=== PATIENT | male | born 1955 | race Caucasian/White ===

== ENCOUNTER 2017-09-17 21:07 | Emergency (ER) | payer MEDICAID ==
[~2017-09-17] VITALS: Ht 177.8 cm; Wt 79.4 kg
[2017-09-18 04:29] LABS: Mean Corpuscular Hgb Conc. 33.8 g/dL (32.0-36.0)
[2017-09-18 04:31] LABS: Hemoglobin 15.9 g/dL (13.5-17.5); Mean Corpuscular Hemoglobin 34.2 pg (28.0-32.0); Mean Corpuscular Volume 101.4 fL (80.0-100.0); Mean Platelet Volume 10.2 fL (6.9-10.8); Platelet Count (auto) 179 10^3/uL (140-450); Red Cell Distribution Width 14.3 % (11.8-14.3); White Blood Cell 14.8 10^3/uL (4.4-10.8)
[2017-09-18 04:35] LABS: Metamyelocytes % 0; Myelocytes % 0; Promyelocytes % 0
[2017-09-18] MEDS ORDERED: SODIUM CHLORIDE 0.9% 1,000 ML IV ONE ×2 (04:45→07:22)
[2017-09-18 04:54] LABS: Albumin 3.7 g/dL (3.4-5.0); Alkaline Phosphatase 93 U/L (45-117); Amylase 83 U/L (25-115); Anion Gap 8 (5-15); Aspartate Aminotransferase 124 U/L (15-37); BUN/Creatinine Ratio 18.1; Bilirubin, Total 0.6 mg/dL (0.2-1.0); Blood Urea Nitrogen 19 mg/dL (7-18); Calcium 9.2 mg/dL (8.5-10.1); Carbon Dioxide 26 mmol/L (21-32); Chloride 105 mmol/L (98-107); GFR African American 92 mL/min; GFR Non-African American 76 mL/min; Glucose 95 mg/dL (74-106); Magnesium 1.8 mg/dL (1.6-2.6); Potassium 4.1 mmol/L (3.5-5.1); Sodium 139 mmol/L (136-145); Total Protein 8.4 g/dL (6.4-8.2)
[2017-09-18 04:58] LABS: INR 0.96 (0.9-1.15); Prothrombin Time 10.5 sec (9.37-12.3)
[2017-09-18 05:37] LABS: Macrocytosis Slight; Platelet Estimate Adequate; Reactive Lymphocytes 4
[2017-09-18] MEDS ORDERED: cefTRIAXone 1GM/50ML D5W 50 ML IV ONE (07:30)
[2017-09-18] MEDS ORDERED: DIPHENOXYLATE W/ATROPINE 2.5 MG TAB PO ONE (07:30)
[2017-09-18 08:30] VITALS: BP 109/76
[2017-09-18] MEDS ORDERED: ALBUTEROL SULF 2.5 MG/0.5ML(0.5%) NEB SOLN NEB ONE (09:15)
[2017-09-18] MEDS ORDERED: IPRATROPIUM BROM 0.5 MG/2.5ML INH SOL NEB ONE (09:15)
== END 2017-09-18 09:52 | disposition home or self-care (01) ==
LOC: EDBD 21:07 → ER 21:13
DX: J44.9 Chronic obstructive pulmonary disease, unspecified (principal); R19.7 Diarrhea, unspecified; E86.0 Dehydration; E78.5 Hyperlipidemia, unspecified; F17.210 Nicotine dependence, cigarettes, uncomplicated
CPT/HCPCS: 36415; 80053; 82150; 83690; 83735; 84484; 85007; 85027; 85610; 93005; 94640; 96361; 96365; 99285; J0696; J7030

== ENCOUNTER → 2019-01-24 | Outpatient (CLI) | payer MEDICARE, MEDICAID ==
[~2019-01-24] MED LIST: ALBUTEROL SULF 2.5 MG/0.5ML(0.5%) NEB SOLN ONE; ATOR20TA50 PO; DICL-176 PO; LEVO-28 PO; PANT40TA2 PO; ROPI0.5T PO
== END | disposition home or self-care (01) ==
LOC: RT 08:25
PROVIDERS: ATTEND Internal Medicine Pulmonary Disease
DX: J44.9 Chronic obstructive pulmonary disease, unspecified (principal)
CPT/HCPCS: 94060; J7611

== ENCOUNTER → 2019-04-11 | Outpatient (CLI) | payer MEDICARE, MEDICAID ==
[~2019-04-11] MED LIST changes: -ALBUTEROL SULF 2.5 MG/0.5ML(0.5%) NEB SOLN ONE
== END | disposition home or self-care (01) ==
LOC: RT 09:03
PROVIDERS: ATTEND Internal Medicine Pulmonary Disease
DX: R06.02 Shortness of breath (principal)
CPT/HCPCS: 94618

== ENCOUNTER 2021-11-11 15:11 | Emergency (ER) | payer MEDICARE, MEDICAID ==
[~2021-11-11] VITALS: Ht 170.2 cm; Wt 65.8 kg
[~2021-11-11 15:11] MED LIST changes: -DICL-176 PO; +DICL75TA3 PO; -ROPI0.5T PO; +ROPI0.5T16 PO
[2021-11-11] MEDS ORDERED: SODIUM CHLORIDE 0.9% 1,000 ML IV ONE (16:45)
[2021-11-11 17:42] LABS: Hematocrit 33.6 % (41.0-53.0); Hemoglobin 10.9 g/dL (13.5-17.5); Mean Corpuscular Hemoglobin 29.6 pg (28.0-32.0); Mean Corpuscular Hgb Conc. 32.4 g/dL (32.0-36.0); Mean Corpuscular Volume 91.5 fL (80.0-100.0); Red Blood Cells 3.67 10^6/uL (4.5-5.90); Red Cell Distribution Width 16.2 % (11.8-14.3); White Blood Cell 16.9 10^3/uL (4.4-10.8)
[2021-11-11 18:01] LABS: Basophils % (manual) 0 (0.0-2.0); Blast Cells 0; Metamyelocytes % 0; Myelocytes % 0; Promyelocytes % 0
[2021-11-11 18:03] LABS: Albumin 2.9 g/dL (3.4-5.0); Calcium 8.6 mg/dL (8.5-10.1); Potassium 4.3 mmol/L (3.5-5.1)
[2021-11-11 18:13] LABS: BUN/Creatinine Ratio 15.8; Bilirubin, Total 0.3 mg/dL (0.2-1.0); Total Protein 8.2 g/dL (6.4-8.2)
[2021-11-11] MEDS ORDERED: cefTRIAXone 1GM/50ML D5W 50 ML IV ONE (18:15)
[2021-11-11 18:40] LABS: Band Neutrophils % (manual) 1; Eosinophils % (manual) 2 (0-7); Lymphocytes % (manual) 10 (10.0-50.0); Monocytes % (manual) 8 (0-12); Reactive Lymphocytes 1
[2021-11-11 23:51] LABS: Urine Bacteria FEW /hpf (None Seen); Urine Blood Negative /uL (Negative); Urine Specific Gravity 1.009 (1.001-1.035); Urine WBC 59 /hpf (0 - 3); Urine WBC Clumps PRESENT /hpf (None Seen)
[2021-11-12 02:05] VITALS: BP 122/68
== END 2021-11-12 04:09 | disposition home or self-care (01) ==
LOC: EDBD 15:11 → ER 15:11
DX: S01.81XA Laceration without foreign body of other part of head, initial encounter (principal); K80.20 Calculus of gallbladder without cholecystitis without obstruction; D64.9 Anemia, unspecified; N39.0 Urinary tract infection, site not specified; J44.9 Chronic obstructive pulmonary disease, unspecified; E78.5 Hyperlipidemia, unspecified; F17.210 Nicotine dependence, cigarettes, uncomplicated; F10.20 Alcohol dependence, uncomplicated; Z86.2 Personal history of diseases of the blood and blood-forming organs and certain disorders involving the immune mechanism; Z79.899 Other long term (current) drug therapy; Y90.9 Presence of alcohol in blood, level not specified; X58.XXXA Exposure to other specified factors, initial encounter; Y93.89 Activity, other specified; Y92.89 Other specified places as the place of occurrence of the external cause; Y99.8 Other external cause status
CPT/HCPCS: 12013; 36415; 70450; 71250; 72125; 74176; 80053; 81001; 84484; 85007; 85027; 93005; 96361; 96365; 99285; J0696

== ENCOUNTER 2022-09-25 18:06 | Inpatient (IN) | payer OTHER, MEDICARE, MEDICAID ==
[~2022-09-25] VITALS: Ht 172.7 cm; Wt 68.0 kg
[2022-09-25] MEDS ORDERED: ALBUTEROL SULF 2.5 MG/0.5ML(0.5%) NEB SOLN HHN ONE (19:15)
[2022-09-25] MEDS ORDERED: methylPREDNISolone SOD SUCC 125 MG/2 ML VL IV ONE (19:15)
[2022-09-25] MEDS ORDERED: SODIUM CHLORIDE 0.9% 1,000 ML IV ONE ×2 (19:15→22:00)
[2022-09-25] MEDS ORDERED: IPRATROPIUM BROM 0.5 MG/2.5ML INH SOL HHN ONE (19:15)
[2022-09-25 20:35] LABS: Albumin 3.6 g/dL (3.4-5.0); Calcium 8.7 mg/dL (8.5-10.1)
[2022-09-25 20:39] LABS: Lactic Acid w/Reflex 3.4 mmol/L (0.4-2.0)
[2022-09-25 20:50] LABS: Basophils # (auto) 0.1 10 ^3/uL (0-0.2); Eosinophils % (auto) 14.3 % (0.0-7.0); Neutrophils # (auto) 5.2 10 ^3/uL (1.6-8.6)
[2022-09-25 20:51] LABS: BUN/Creatinine Ratio 12.8; Basophils % (auto) 1.4 % (0.0-2.0); Bilirubin, Total 0.2 mg/dL (0.2-1.0); Eosinophils # (auto) 1.4 10 ^3/uL (0-0.8); Hemoglobin 12.2 g/dL (13.5-17.5); Lymphocytes # (auto) 2.1 10 ^3/uL (0.4-5.4); Lymphocytes % (auto) 21.1 % (10.0-50.0); Magnesium 2.6 mg/dL (1.6-2.6); Mean Corpuscular Hemoglobin 34.6 pg (28.0-32.0); Mean Corpuscular Hgb Conc. 33.8 g/dL (32.0-36.0); Mean Corpuscular Volume 102.3 fL (80.0-100.0); Monocytes # (auto) 1.1 10 ^3/uL (0-1.3); Monocytes % (auto) 10.9 % (0.0-12.0); Neutrophils % (auto) 52.3 % (37.0-80.0); Nucleated Red Blood Cells % 0.2 %; Red Blood Cells 3.52 10^6/uL (4.5-5.90); Red Cell Distribution Width 15.2 % (11.8-14.3); Total Protein 8.2 g/dL (6.4-8.2); White Blood Cell 9.9 10^3/uL (4.4-10.8)
[2022-09-25] MEDS ORDERED: levoFLOXacin 750MG 150 ML IV ONE (21:30)
[2022-09-25] MEDS ORDERED: AZITHROMYCIN 500MG/ 250ML 250 ML IV ONE (22:00)
[2022-09-25] MEDS ORDERED: IPRATROPIUM BROM 0.5 MG/2.5ML INH SOL NEB PRN (22:00)
[2022-09-25] MEDS ORDERED: SODIUM CHLORIDE 0.9% 500 ML IV ONE (22:00)
[2022-09-25] MEDS ORDERED: ALBUTEROL SULF 2.5 MG/0.5ML(0.5%) NEB SOLN NEB PRN (22:00)
[2022-09-25] MEDS ORDERED: MORPHINE SULFATE INJ 2 MG/ml SYRG IV PRN (22:30)
[2022-09-25] MEDS ORDERED: NITROGLYCERIN 0.4 MG SL TAB SL PRN (22:30)
[2022-09-25 23:37] LABS: Lactic Acid w/Reflex 2.9 mmol/L (0.4-2.0)
[2022-09-25 23:41] LABS: Urine Bacteria MANY /hpf (None Seen); Urine Blood Negative /uL (Negative); Urine Mucus FEW (None Seen); Urine Specific Gravity 1.005 (1.001-1.035); Urine Sperm PRESENT /hpf (None Seen); Urine WBC 15 /hpf (0 - 3)
[2022-09-25 23:50] LABS: Amphetamine Screen, Urine POSITIVE (NEGATIVE); Barbiturate Scree,Urine NEGATIVE (NEGATIVE); Benzodiazephine Screen, Urine NEGATIVE (NEGATIVE); Cannabinoid Screen, Urine NEGATIVE (NEGATIVE); Cocaine Screen, Urine NEGATIVE (NEGATIVE); Opiate Scree,Urine NEGATIVE (NEGATIVE); Phencyclidine Screen, Urine NEGATIVE (NEGATIVE)
[2022-09-26 00:10] VITALS: BP 110/68
[2022-09-26 05:15] LABS: Basophils # (auto) 0 10 ^3/uL (0-0.2); Eosinophils # (auto) 0 10 ^3/uL (0-0.8); Eosinophils % (auto) 0.3 % (0.0-7.0); Hemoglobin 11.1 g/dL (13.5-17.5); Lymphocytes # (auto) 0.6 10 ^3/uL (0.4-5.4); Monocytes # (auto) 0 10 ^3/uL (0-1.3); Neutrophils # (auto) 5.2 10 ^3/uL (1.6-8.6)
[2022-09-26 05:17] LABS: Basophils % (auto) 0.3 % (0.0-2.0); Hematocrit 33.3 % (41.0-53.0); Lymphocytes % (auto) 9.6 % (10.0-50.0); Mean Corpuscular Hemoglobin 34.1 pg (28.0-32.0); Mean Corpuscular Hgb Conc. 33.3 g/dL (32.0-36.0); Mean Corpuscular Volume 102.1 fL (80.0-100.0); Monocytes % (auto) 0.8 % (0.0-12.0); Red Blood Cells 3.26 10^6/uL (4.5-5.90); Red Cell Distribution Width 15.3 % (11.8-14.3); White Blood Cell 5.9 10^3/uL (4.4-10.8)
[2022-09-26 05:29] LABS: Calcium 8.1 mg/dL (8.5-10.1); Potassium 4.6 mmol/L (3.5-5.1)
[2022-09-26 05:32] LABS: BUN/Creatinine Ratio 12.7
[2022-09-26] MEDS: ALBUTEROL SULF 2.5 MG/0.5ML(0.5%) NEB SOLN NEB SCH ×3 (06:50→18:23)
[2022-09-26] MEDS: IPRATROPIUM BROM 0.5 MG/2.5ML INH SOL NEB SCH ×3 (06:50→18:23)
[2022-09-26] MEDS ORDERED: methylPREDNISolone SOD SUCC 125 MG/2 ML VL IV SCH (10:00)
[2022-09-26] MEDS ORDERED: DICLOFENAC SODIUM 75 MG PO SCH (10:00)
[2022-09-26] MEDS ORDERED: ENOXAPARIN SOD 40 MG/0.4 ML SYRINGE SC SCH (10:00)
[2022-09-26] MEDS: ROPINIROLE HYDROCHLORIDE 0.25 MG PO SCH (10:00)
[2022-09-26] MEDS: NICOTINE 7MG/24HR TOPICAL PATCH TD SCH (10:21)
[2022-09-26] MEDS: AZITHROMYCIN 500MG/ 250ML 250 ML IV SCH (10:21)
[2022-09-26] MEDS: PANTOPRAZOLE 40 MG TAB PO SCH (10:22)
[2022-09-26] MEDS: ATORVASTATIN 20 MG TAB PO SCH (10:22)
[2022-09-26] MEDS ORDERED: methylPREDNISolone SOD SUCC 125 MG/2 ML VL IV ONE (13:30)
[2022-09-26] MEDS ORDERED: cefTRIAXone 1GM/50ML D5W 50 ML IV ONE (13:45)
[2022-09-26] MEDS: ENOXAPARIN SOD 40 MG/0.4 ML SYRINGE SC SCH (14:02)
[2022-09-26] MEDS: ASPirin 81 mg TAB PO SCH (14:02)
[2022-09-26] MEDS ORDERED: chlordiazePOXIDE HCL 25 MG CAP PO PRN (19:45)
[2022-09-26] MEDS ORDERED: LORazepam 2MG/ML-1ML VIAL IV PRN ×2 (19:45)
[2022-09-26] MEDS ORDERED: TEMAZEPAM 15 MG CAP PO PRN (22:00)
[2022-09-26] MEDS: FOLIC ACID 1 MG, MULTIPLE VITAMIN 10 ML, THIAMINE INJ 100 MG in SODIUM CHLORIDE 0.9% 1,... INJ SCH (22:51)
[2022-09-27] VITALS (7 sets, daily range): BP systolic 116–142; BP diastolic 67–87
[2022-09-27] MEDS: methylPREDNISolone SOD SUCC 40 MG/ML VL IV SCH ×3 (00:18→11:58)
[2022-09-27] MEDS ORDERED: OLAN1TAB7 PO (03:18)
[2022-09-27] MEDS ORDERED: PRED10TA PO (03:18)
[2022-09-27] MEDS: IPRATROPIUM BROM 0.5 MG/2.5ML INH SOL NEB SCH ×3 (06:45→19:30)
[2022-09-27] MEDS: ALBUTEROL SULF 2.5 MG/0.5ML(0.5%) NEB SOLN NEB SCH ×3 (06:45→19:30)
[2022-09-27 07:01] LABS: Calcium 8.7 mg/dL (8.5-10.1); Magnesium 2.3 mg/dL (1.6-2.6); Potassium 4.3 mmol/L (3.5-5.1)
[2022-09-27 07:04] LABS: BUN/Creatinine Ratio 19.3
[2022-09-27] MEDS: cefTRIAXone 1GM/50ML D5W 50 ML IV SCH (10:49)
[2022-09-27] MEDS: ATORVASTATIN 20 MG TAB PO SCH (10:50)
[2022-09-27] MEDS: AZITHROMYCIN 500MG/ 250ML 250 ML IV SCH (10:50)
[2022-09-27] MEDS: ROPINIROLE HYDROCHLORIDE 0.25 MG PO SCH (10:50)
[2022-09-27] MEDS: ASPirin 81 mg TAB PO SCH (10:50)
[2022-09-27] MEDS: PANTOPRAZOLE 40 MG TAB PO SCH (10:50)
[2022-09-27] MEDS: ENOXAPARIN SOD 40 MG/0.4 ML SYRINGE SC SCH (10:51)
[2022-09-27] MEDS: NICOTINE 7MG/24HR TOPICAL PATCH TD SCH (10:52)
[2022-09-27] MEDS: FOLIC ACID 1 MG, MULTIPLE VITAMIN 10 ML, THIAMINE INJ 100 MG in SODIUM CHLORIDE 0.9% 1,... INJ SCH (14:30)
[2022-09-27] MEDS ORDERED: methylPREDNISolone SOD SUCC 125 MG/2 ML VL IV ONE (17:00)
[2022-09-27] MEDS: methylPREDNISolone SOD SUCC 125 MG/2 ML VL IV SCH ×2 (18:16→23:23)
[2022-09-28 05:00] VITALS: BP 148/90
[2022-09-28] MEDS: methylPREDNISolone SOD SUCC 125 MG/2 ML VL IV SCH ×4 (05:03→23:47)
[2022-09-28] MEDS: ALBUTEROL SULF 2.5 MG/0.5ML(0.5%) NEB SOLN NEB SCH ×4 (06:32→22:56)
[2022-09-28] MEDS: IPRATROPIUM BROM 0.5 MG/2.5ML INH SOL NEB SCH ×4 (06:32→22:56)
[2022-09-28 06:42] LABS: Basophils # (auto) 0 10 ^3/uL (0-0.2); Eosinophils # (auto) 0 10 ^3/uL (0-0.8); Mean Corpuscular Hemoglobin 33.6 pg (28.0-32.0); Monocytes # (auto) 0.4 10 ^3/uL (0-1.3)
[2022-09-28 06:45] LABS: Hematocrit 31.9 % (41.0-53.0); Hemoglobin 10.6 g/dL (13.5-17.5); Lymphocytes # (auto) 0.9 10 ^3/uL (0.4-5.4); Lymphocytes % (auto) 6.5 % (10.0-50.0); Mean Corpuscular Hgb Conc. 33.2 g/dL (32.0-36.0); Monocytes % (auto) 3.1 % (0.0-12.0); Neutrophils # (auto) 12.4 10 ^3/uL (1.6-8.6); Neutrophils % (auto) 90.4 % (37.0-80.0); Nucleated Red Blood Cells % 0.1 %; Red Blood Cells 3.16 10^6/uL (4.5-5.90); Red Cell Distribution Width 14.9 % (11.8-14.3); White Blood Cell 13.7 10^3/uL (4.4-10.8)
[2022-09-28 06:56] LABS: Calcium 8.4 mg/dL (8.5-10.1); Potassium 3.7 mmol/L (3.5-5.1)
[2022-09-28 07:02] LABS: Albumin 3.1 g/dL (3.4-5.0); BUN/Creatinine Ratio 25.5; Bilirubin, Total 0.5 mg/dL (0.2-1.0)
[2022-09-28 09:00] VITALS: BP 128/85
[2022-09-28] MEDS: cefTRIAXone 1GM/50ML D5W 50 ML IV SCH (09:05)
[2022-09-28] MEDS: ENOXAPARIN SOD 40 MG/0.4 ML SYRINGE SC SCH (09:05)
[2022-09-28] MEDS: ASPirin 81 mg TAB PO SCH (09:06)
[2022-09-28] MEDS: PANTOPRAZOLE 40 MG TAB PO SCH (09:06)
[2022-09-28] MEDS: ATORVASTATIN 20 MG TAB PO SCH (09:06)
[2022-09-28] MEDS: AZITHROMYCIN 500MG/ 250ML 250 ML IV SCH (09:06)
[2022-09-28] MEDS: NICOTINE 7MG/24HR TOPICAL PATCH TD SCH (09:15)
[2022-09-28] MEDS: ROPINIROLE HYDROCHLORIDE 0.25 MG PO SCH (09:16)
[2022-09-28] MEDS ORDERED: FOLIC ACID 1 MG, MULTIPLE VITAMIN 10 ML, THIAMINE INJ 100 MG, MAGNESIUM SULF SDV 50% 8 ... INJ SCH ×5 (12:00)
[2022-09-28 13:00] VITALS: BP 118/77
[2022-09-28 16:43] VITALS: BP 116/78
[2022-09-28 22:00] VITALS: BP 131/70
[2022-09-29] MEDS: IPRATROPIUM BROM 0.5 MG/2.5ML INH SOL NEB SCH ×6 (03:13→22:00)
[2022-09-29] MEDS: ALBUTEROL SULF 2.5 MG/0.5ML(0.5%) NEB SOLN NEB SCH ×6 (03:13→22:00)
[2022-09-29 05:00] VITALS: BP 129/85
[2022-09-29] MEDS: methylPREDNISolone SOD SUCC 125 MG/2 ML VL IV SCH (05:53)
[2022-09-29 08:47] VITALS: BP 143/85
[2022-09-29] MEDS: cefTRIAXone 1GM/50ML D5W 50 ML IV SCH (09:31)
[2022-09-29] MEDS: ATORVASTATIN 20 MG TAB PO SCH (09:36)
[2022-09-29] MEDS: ASPirin 81 mg TAB PO SCH (09:36)
[2022-09-29] MEDS: PANTOPRAZOLE 40 MG TAB PO SCH (09:36)
[2022-09-29] MEDS: ENOXAPARIN SOD 40 MG/0.4 ML SYRINGE SC SCH (09:36)
[2022-09-29] MEDS: ROPINIROLE HYDROCHLORIDE 0.25 MG PO SCH (10:00)
[2022-09-29] MEDS: AZITHROMYCIN 500MG/ 250ML 250 ML IV SCH (11:05)
[2022-09-29 13:23] VITALS: BP 108/62
[2022-09-29 17:00] VITALS: BP 118/70
[2022-09-29] MEDS: NICOTINE 7MG/24HR TOPICAL PATCH TD SCH (17:21)
[2022-09-29 22:00] VITALS: BP 120/70
[2022-09-30] MEDS: IPRATROPIUM BROM 0.5 MG/2.5ML INH SOL NEB SCH ×4 (02:03→14:12)
[2022-09-30] MEDS: ALBUTEROL SULF 2.5 MG/0.5ML(0.5%) NEB SOLN NEB SCH ×4 (02:03→14:12)
[2022-09-30 05:00] VITALS: BP 104/67
[2022-09-30 08:00] VITALS: BP 111/69
[2022-09-30] MEDS: cefTRIAXone 1GM/50ML D5W 50 ML IV SCH (09:09)
[2022-09-30] MEDS: PANTOPRAZOLE 40 MG TAB PO SCH (09:13)
[2022-09-30] MEDS: ASPirin 81 mg TAB PO SCH (09:14)
[2022-09-30] MEDS: ATORVASTATIN 20 MG TAB PO SCH (09:14)
[2022-09-30] MEDS: NICOTINE 7MG/24HR TOPICAL PATCH TD SCH (09:15)
[2022-09-30] MEDS: ENOXAPARIN SOD 40 MG/0.4 ML SYRINGE SC SCH (09:18)
[2022-09-30] MEDS: ROPINIROLE HYDROCHLORIDE 0.25 MG PO SCH (09:23)
[2022-09-30] MEDS ORDERED: AZITHROMYCIN 250 MG TAB PO SCH (10:00)
[2022-09-30] MEDS ORDERED: FOLIC ACID 1 MG TAB PO SCH (10:00)
[2022-09-30] MEDS ORDERED: predniSONE 20 MG TAB PO SCH (10:00)
[2022-09-30 12:00] VITALS: BP 114/73
[2022-09-30] MEDS ORDERED: AZITTAB2 PO (12:05)
[2022-09-30] MEDS ORDERED: METH4PAK PO (12:05)
== END 2022-09-30 16:31 | disposition hospice, home (50) | DRG 193 ==
LOC: EDBD 18:06 → ER 18:06 → TELE 22:28 → TELE-WESTW 09-26 23:18 → WEST WING 09-30 10:31
PROVIDERS: ADMIT Registered Nurse; ATTEND Internal Medicine
DX: J18.9 Pneumonia, unspecified organism (principal); G93.41 Metabolic encephalopathy; J96.20 Acute and chronic respiratory failure, unspecified whether with hypoxia or hypercapnia; N17.0 Acute kidney failure with tubular necrosis; J44.1 Chronic obstructive pulmonary disease with (acute) exacerbation; N39.0 Urinary tract infection, site not specified; J44.0 Chronic obstructive pulmonary disease with (acute) lower respiratory infection; R55 Syncope and collapse; D63.8 Anemia in other chronic diseases classified elsewhere; D69.6 Thrombocytopenia, unspecified; F10.10 Alcohol abuse, uncomplicated; F17.210 Nicotine dependence, cigarettes, uncomplicated; N18.30 Chronic kidney disease, stage 3 unspecified; Z20.822 Contact with and (suspected) exposure to COVID-19; F15.10 Other stimulant abuse, uncomplicated; Z71.6 Tobacco abuse counseling; Z85.118 Personal history of other malignant neoplasm of bronchus and lung; Z86.73 Personal history of transient ischemic attack (TIA), and cerebral infarction without residual deficits
CPT/HCPCS: 36415; 36600; 70450; 70551; 71045; 80048; 80053; 80061; 80307; 80320; 81001; 82805; 83036; 83605; 83735; 83880; 84443; 84484; 85025; 85379; 85610; 87040; 87086; 87426; 87804; 93005; 93306; 93886; 94640; 95819; 96365; 96367; 96375; 97110; 97116; 97163; 97530; G0378; J0696; J1956

== ENCOUNTER 2023-06-27 19:20 | Inpatient (IN) | payer OTHER, MEDICARE, MEDICAID ==
[~2023-06-27] VITALS: Ht 177.8 cm; Wt 56.8 kg
[~2023-06-27 19:20] MED LIST changes: +ASCO500T11 PO; +AZITTAB2 PO; +FERR325T20 PO; -LEVO-28 PO; +LEVO500T91 PO; +LORA-1121 PO; +METH4PAK PO; +OLAN1TAB7 PO; +OLAN20TA PO; +PRED10TA PO; +PRED20TA2 PO; +QUET100T47 PO; +ROPI0.5T4 PO
[2023-06-27] MEDS ORDERED: ALBUTEROL SULF 2.5 MG/0.5ML(0.5%) NEB SOLN NEB ONE (20:30)
[2023-06-27] MEDS ORDERED: IPRATROPIUM BROM 0.5 MG/2.5ML INH SOL NEB ONE (20:30)
[2023-06-27] MEDS ORDERED: SODIUM CHLORIDE 0.9% 2,400 ML IV ONE (20:30)
[2023-06-27] MEDS ORDERED: ACETAMINOPHEN 650 MG RECT SUPP PR ONE (20:30)
[2023-06-27] MEDS ORDERED: VANCOMYCIN PER PHARMACY 1,000 MG IV SCH (20:30)
[2023-06-27] MEDS ORDERED: PANTOPRAZOLE 40 MG/10 ML VIAL INJ IV ONE (20:30)
[2023-06-27 20:52] LABS: Base Excess 1.2 mmol/L (-2.0-2.0)
[2023-06-27] MEDS ORDERED: VANCOMYCIN 1GM/250ML 250 ML IV ONE (21:00)
[2023-06-27 21:04] LABS: Basophils # (auto) 0.1 10 ^3/uL (0-0.2); Basophils % (auto) 0.7 % (0.0-2.0); Eosinophils # (auto) 0.1 10 ^3/uL (0-0.8); Eosinophils % (auto) 0.4 % (0.0-7.0); Hematocrit 32.4 % (41.0-53.0); Hemoglobin 9.3 g/dL (13.5-17.5); Lymphocytes # (auto) 1.3 10 ^3/uL (0.4-5.4); Lymphocytes % (auto) 9.8 % (10.0-50.0); Mean Corpuscular Hemoglobin 24.2 pg (28.0-32.0); Mean Corpuscular Hgb Conc. 28.8 g/dL (32.0-36.0); Monocytes # (auto) 1.8 10 ^3/uL (0-1.3); Monocytes % (auto) 13.6 % (0.0-12.0); Neutrophils # (auto) 10.2 10 ^3/uL (1.6-8.6); Neutrophils % (auto) 75.5 % (37.0-80.0); Red Blood Cells 3.86 10^6/uL (4.5-5.90); White Blood Cell 13.5 10^3/uL (4.4-10.8)
[2023-06-27 21:05] LABS: Red Cell Distribution Width 27.3 % (11.8-14.3)
[2023-06-27 21:50] LABS: Partial Thromboplastin Time 26.2 SEC (24.5-34.5); Prothrombin Time 10.5 sec (9.3-11.8)
[2023-06-27 22:09] LABS: Alanine Aminotransferase 36 U/L (16-61); Albumin 3.2 g/dL (3.4-5.0); Anion Gap 3 (5-15); Aspartate Aminotransferase 26 U/L (15-37); BUN/Creatinine Ratio 16.6 (10.0-20.0); Blood Urea Nitrogen 29 mg/dL (7-18); Calcium 8.6 mg/dL (8.5-10.1); Carbon Dioxide 31 mmol/L (21-32); Chloride 105 mmol/L (98-107); GFR African American 50 mL/min; GFR Non-African American 41 mL/min; Glucose 120 mg/dL (74-106); Magnesium 2.1 mg/dL (1.6-2.6); Potassium 5.4 mmol/L (3.5-5.1); Sodium 139 mmol/L (136-145)
[2023-06-27 22:12] LABS: Alkaline Phosphatase 54 U/L (45-117); Bilirubin, Total 0.3 mg/dL (0.2-1.0)
[2023-06-27 22:28] LABS: Blood Alcohol < 3.0 mg/dL (<10)
[2023-06-27 22:34] VITALS: BP 132/80; PULSE 120; RESP 26; TEMP 100.4; O2SAT 88
[2023-06-27 22:46] VITALS: PULSE 107; O2SAT 92
[2023-06-27 22:46] LABS: Anisocytosis Moderate; Platelet Estimate Decreased
[2023-06-27 22:47] LABS: Hypochromia Slight; Large Platelets FEW; Stomatocytes Few
[2023-06-27 23:10] VITALS: PULSE 108; O2SAT 90
[2023-06-27 23:41] VITALS: BP 101/57; PULSE 103; O2SAT 97
[2023-06-28] VITALS (11 sets, daily range): BP systolic 98–130; BP diastolic 54–80; PULSE 72–107; RESP 20–26; O2SAT 94–99
[2023-06-28] MEDS: PIPERACILLIN-TAZOB 3.375GM 100 ML IV SCH ×4 (00:09→18:13)
[2023-06-28 00:46] LABS: Urine Bacteria MANY /hpf (None Seen); Urine Blood Negative /uL (Negative); Urine Clarity HAZY (Clear); Urine Color Colorless (Yellow); Urine Mucus FEW (None Seen); Urine Protein, UAD TRACE (Negative); Urine Specific Gravity 1.011 (1.001-1.035); Urine Urobilinogen Normal (Negative); Urine WBC 164 /hpf (0 - 3); Urine WBC Clumps PRESENT /hpf (None Seen); Urine pH 5.5 (5.0-8.0)
[2023-06-28 00:57] LABS: Alcohol, Urine < 3.0 mg/dL (0-10); Amphetamine Screen, Urine NEGATIVE (NEGATIVE); Barbiturate Scree,Urine NEGATIVE (NEGATIVE); Benzodiazephine Screen, Urine POSITIVE (NEGATIVE); Cannabinoid Screen, Urine NEGATIVE (NEGATIVE); Cocaine Screen, Urine NEGATIVE (NEGATIVE)
[2023-06-28 01:05] LABS: Opiate Scree,Urine POSITIVE (NEGATIVE); Phencyclidine Screen, Urine NEGATIVE (NEGATIVE)
[2023-06-28 01:19] LABS: Base Excess -4.9 mmol/L (-2.0-2.0)
[2023-06-28] MEDS ORDERED: FUROSEMIDE 20 MG/2 ML VIAL IV ONE (04:45)
[2023-06-28] MEDS ORDERED: NITROGLYCERIN 0.4 MG SL TAB SL PRN (06:00)
[2023-06-28] MEDS ORDERED: methylPREDNISolone SOD SUCC 40 MG/ML VL IV SCH (06:00)
[2023-06-28] MEDS ORDERED: DOCUSATE SOD 100 MG CAP PO PRN (06:00)
[2023-06-28] MEDS ORDERED: MORPHINE SULFATE INJ 2 MG/ml SYRG IV PRN (06:00)
[2023-06-28] MEDS ORDERED: ONDANSETRON HCL 4 MG/2 ML VIAL IV PRN (06:00)
[2023-06-28] MEDS ORDERED: SODIUM ZIRCONIUM CYCL 10 GM PAK PO ONE (06:00)
[2023-06-28] MEDS ORDERED: ACETAMINOPHEN 650 MG RECT SUPP PR PRN (06:00)
[2023-06-28] MEDS: SODIUM CHLOR 0.9% PF (SALINE LOCK) 10ML VIAL/SYR IV SCH ×3 (06:54→22:42)
[2023-06-28 07:17] LABS: Eosinophils # (auto) 0 10 ^3/uL (0-0.8); Neutrophils # (auto) 9.1 10 ^3/uL (1.6-8.6); Red Blood Cells 3.25 10^6/uL (4.5-5.90)
[2023-06-28 07:20] LABS: Basophils # (auto) 0.1 10 ^3/uL (0-0.2); Basophils % (auto) 0.9 % (0.0-2.0); Eosinophils % (auto) 0.4 % (0.0-7.0); Hematocrit 26.6 % (41.0-53.0); Hemoglobin 7.9 g/dL (13.5-17.5); Lymphocytes # (auto) 1.7 10 ^3/uL (0.4-5.4); Lymphocytes % (auto) 13.4 % (10.0-50.0); Mean Corpuscular Hemoglobin 24.3 pg (28.0-32.0); Mean Corpuscular Hgb Conc. 29.6 g/dL (32.0-36.0); Monocytes # (auto) 1.6 10 ^3/uL (0-1.3); Monocytes % (auto) 12.6 % (0.0-12.0); Neutrophils % (auto) 72.7 % (37.0-80.0); White Blood Cell 12.5 10^3/uL (4.4-10.8)
[2023-06-28 07:52] LABS: Red Cell Distribution Width 27.3 % (11.8-14.3)
[2023-06-28 07:54] LABS: Potassium 4.3 mmol/L (3.5-5.1)
[2023-06-28 08:03] LABS: Albumin 2.9 g/dL (3.4-5.0); BUN/Creatinine Ratio 17.1 (10.0-20.0); Bilirubin, Total 0.4 mg/dL (0.2-1.0); Calcium 8.5 mg/dL (8.5-10.1); Total Protein 7.3 g/dL (6.4-8.2)
[2023-06-28 09:27] LABS: Hypochromia Moderate; Platelet Estimate Decreased
[2023-06-28 09:28] LABS: Anisocytosis Moderate
[2023-06-28] MEDS ORDERED: DexAMETHasone SOD PHOS 10MG/1ML VIAL INJ ONE (10:43)
[2023-06-28 10:46] LABS: Base Excess 1.5 mmol/L (-2.0-2.0)
[2023-06-28] MEDS: FUROSEMIDE 20 MG/2 ML VIAL IV SCH (10:53)
[2023-06-28] MEDS: DexAMETHasone SOD PHOS 10MG/1ML VIAL INJ IV SCH (10:54)
[2023-06-28] MEDS: FAMOTIDINE (10MG/ML) 2ML VL IV SCH ×2 (10:54→22:42)
[2023-06-28 12:16] LABS: Base Excess 3.6 mmol/L (-2.0-2.0)
[2023-06-28 15:35] LABS: Base Excess 4.2 mmol/L (-2.0-2.0)
[2023-06-28] MEDS: VANCOMYCIN 1GM/250ML 250 ML IV SCH (20:24)
[2023-06-28] MEDS: IPRATROPIUM BROM 0.5 MG/2.5ML INH SOL NEB PRN (23:53)
[2023-06-28] MEDS: ALBUTEROL SULF 2.5 MG/0.5ML(0.5%) NEB SOLN NEB PRN (23:53)
[2023-06-29] VITALS (11 sets, daily range): BP systolic 109–133; BP diastolic 62–88; PULSE 69–106; RESP 23–35; O2SAT 93–100
[2023-06-29] MEDS: PIPERACILLIN-TAZOB 3.375GM 100 ML IV SCH ×4 (02:00→19:53)
[2023-06-29 06:43] LABS: Basophils # (auto) 0.1 10 ^3/uL (0-0.2); Basophils % (auto) 0.6 % (0.0-2.0); Eosinophils # (auto) 0 10 ^3/uL (0-0.8); Hematocrit 28.7 % (41.0-53.0); Hemoglobin 8.8 g/dL (13.5-17.5); Lymphocytes # (auto) 1.6 10 ^3/uL (0.4-5.4); Mean Corpuscular Hemoglobin 24.5 pg (28.0-32.0); Monocytes # (auto) 1.2 10 ^3/uL (0-1.3); Neutrophils # (auto) 8.6 10 ^3/uL (1.6-8.6); White Blood Cell 11.5 10^3/uL (4.4-10.8)
[2023-06-29 06:45] LABS: Eosinophils % (auto) 0.3 % (0.0-7.0); Lymphocytes % (auto) 13.8 % (10.0-50.0); Mean Corpuscular Hgb Conc. 30.7 g/dL (32.0-36.0); Mean Corpuscular Volume 79.8 fL (80.0-100.0); Monocytes % (auto) 10.5 % (0.0-12.0); Neutrophils % (auto) 74.8 % (37.0-80.0); Red Cell Distribution Width 29.4 % (11.8-14.3)
[2023-06-29 06:56] LABS: Albumin 3.3 g/dL (3.4-5.0); Calcium 9.7 mg/dL (8.5-10.1); Potassium 3.3 mmol/L (3.5-5.1)
[2023-06-29 06:59] LABS: BUN/Creatinine Ratio 18.8 (10.0-20.0); Bilirubin, Total 0.4 mg/dL (0.2-1.0); Total Protein 8.4 g/dL (6.4-8.2)
[2023-06-29] MEDS: SODIUM CHLOR 0.9% PF (SALINE LOCK) 10ML VIAL/SYR IV SCH ×3 (07:49→22:10)
[2023-06-29] MEDS: ALBUTEROL SULF 2.5 MG/0.5ML(0.5%) NEB SOLN NEB PRN ×3 (09:58→22:24)
[2023-06-29] MEDS: IPRATROPIUM BROM 0.5 MG/2.5ML INH SOL NEB PRN ×3 (09:58→22:24)
[2023-06-29] MEDS ORDERED: DexAMETHasone SOD PHOS 10MG/1ML VIAL INJ IV SCH (10:00)
[2023-06-29] MEDS: DexAMETHasone SOD PHOS 10MG/1ML VIAL INJ IV SCH (10:00)
[2023-06-29] MEDS: FAMOTIDINE (10MG/ML) 2ML VL IV SCH ×2 (11:04→22:10)
[2023-06-29] MEDS: FUROSEMIDE 20 MG/2 ML VIAL IV SCH (11:05)
[2023-06-29] MEDS ORDERED: LORazepam 2MG/ML-1ML VIAL ONE (11:16)
[2023-06-29] MEDS: LORazepam 2MG/ML-1ML VIAL IV PRN ×2 (11:31→21:23)
[2023-06-29] MEDS ORDERED: HALOPERIDOL LACTATE 5 MG/ML INJ VIAL IM ONE (13:15)
[2023-06-29 17:06] LABS: Base Excess 8.8 mmol/L (-2.0-2.0)
[2023-06-29] MEDS: VANCOMYCIN 1GM/250ML 250 ML IV SCH (18:51)
[2023-06-30] VITALS (11 sets, daily range): BP systolic 105–142; BP diastolic 58–84; PULSE 62–94; RESP 18–25; TEMP 98.1–98.6; O2SAT 98–100
[2023-06-30] MEDS: PIPERACILLIN-TAZOB 3.375GM 100 ML IV SCH ×3 (00:03→17:34)
[2023-06-30] MEDS: SODIUM CHLOR 0.9% PF (SALINE LOCK) 10ML VIAL/SYR IV SCH ×3 (06:11→21:42)
[2023-06-30] MEDS: DexAMETHasone SOD PHOS 10MG/1ML VIAL INJ IV SCH (10:00)
[2023-06-30] MEDS: FAMOTIDINE (10MG/ML) 2ML VL IV SCH ×2 (10:00→21:39)
[2023-06-30] MEDS: FUROSEMIDE 20 MG/2 ML VIAL IV SCH (10:00)
[2023-06-30 11:40] LABS: Calcium 9.8 mg/dL (8.5-10.1)
[2023-06-30 11:43] LABS: Potassium 2.9 mmol/L (3.5-5.1)
[2023-06-30] MEDS ORDERED: POTASSIUM CHL 20 Meq TABLET PO ONE (12:45)
[2023-06-30] MEDS: BUDESONIDE (INHALATION) 0.5 MG/2 ML NEB NEB SCH (19:12)
[2023-06-30] MEDS: IPRATROPIUM BROM 0.5 MG/2.5ML INH SOL NEB PRN (19:12)
[2023-06-30] MEDS: ALBUTEROL SULF 2.5 MG/0.5ML(0.5%) NEB SOLN NEB PRN (19:12)
[2023-07-01] VITALS (9 sets, daily range): BP systolic 114–141; BP diastolic 64–71; PULSE 63–76; RESP 16–20; TEMP 98.1–98.3; O2SAT 98–100
[2023-07-01] MEDS: PIPERACILLIN-TAZOB 3.375GM 100 ML IV SCH (06:09)
[2023-07-01] MEDS: SODIUM CHLOR 0.9% PF (SALINE LOCK) 10ML VIAL/SYR IV SCH (06:11)
[2023-07-01] MEDS: BUDESONIDE (INHALATION) 0.5 MG/2 ML NEB NEB SCH (06:54)
[2023-07-01] MEDS ORDERED: LEVO750T8 PO (08:24)
[2023-07-01] MEDS: FAMOTIDINE (10MG/ML) 2ML VL IV SCH (08:45)
[2023-07-01] MEDS: DexAMETHasone SOD PHOS 10MG/1ML VIAL INJ IV SCH (08:45)
[2023-07-01] MEDS: FUROSEMIDE 20 MG/2 ML VIAL IV SCH (08:46)
== END 2023-07-01 11:45 | disposition hospice, home (50) | DRG 871 ==
LOC: EDBD 19:20 → ER 19:20 → TELE 06-28 06:09 → TELE-CENTR 06-30 06:17
PROVIDERS: ADMIT Family Medicine; ATTEND Family Medicine
PROC: 5A09357 Assistance with Respiratory Ventilation, Less than 24 Consecutive Hours, Continuous Positive Airway Pressure (ICD-10-PCS; principal; 2023-06-27)
PROC: 5A09357 Assistance with Respiratory Ventilation, Less than 24 Consecutive Hours, Continuous Positive Airway Pressure (ICD-10-PCS; 2023-06-28)
PROC: 5A09357 Assistance with Respiratory Ventilation, Less than 24 Consecutive Hours, Continuous Positive Airway Pressure (ICD-10-PCS; 2023-06-29)
DX: A41.81 Sepsis due to Enterococcus (principal); I50.33 Acute on chronic diastolic (congestive) heart failure; J69.0 Pneumonitis due to inhalation of food and vomit; J96.21 Acute and chronic respiratory failure with hypoxia; J96.22 Acute and chronic respiratory failure with hypercapnia; E87.29 Other acidosis; G93.49 Other encephalopathy; I13.0 Hypertensive heart and chronic kidney disease with heart failure and stage 1 through stage 4 chronic kidney disease, or unspecified chronic kidney disease; J44.1 Chronic obstructive pulmonary disease with (acute) exacerbation; N17.9 Acute kidney failure, unspecified; N39.0 Urinary tract infection, site not specified; J44.0 Chronic obstructive pulmonary disease with (acute) lower respiratory infection; D64.9 Anemia, unspecified; D69.59 Other secondary thrombocytopenia; E78.5 Hyperlipidemia, unspecified; E87.5 Hyperkalemia; F10.10 Alcohol abuse, uncomplicated; F32.A Depression, unspecified; Y90.9 Presence of alcohol in blood, level not specified; N18.32 Chronic kidney disease, stage 3b; F15.10 Other stimulant abuse, uncomplicated; Z51.5 Encounter for palliative care; Z87.19 Personal history of other diseases of the digestive system; Z86.73 Personal history of transient ischemic attack (TIA), and cerebral infarction without residual deficits
CPT/HCPCS: 36415; 36600; 70450; 71045; 80048; 80053; 80202; 80307; 80320; 81001; 82140; 82805; 83605; 83735; 83880; 84484; 85025; 85610; 85730; 86850; 86900; 86901; 87040; 87081; 87086; 87088; 87186; 94640; 94660; 96365; 96375; 99291; C9113; G0378; J1100; J2543; J3490

== ENCOUNTER 2023-08-31 03:43 | Inpatient (IN) | payer OTHER, MEDICARE, MEDICAID ==
[~2023-08-31] VITALS: Ht 170.2 cm; Wt 62.0 kg
[2023-08-31] VITALS (9 sets, daily range): BP systolic 101–133; BP diastolic 54–76; PULSE 76–111; RESP 18–38; TEMP 97.1–98.1; O2SAT 94–100
[~2023-08-31 03:43] MED LIST changes: +LEVO750T8 PO
[2023-08-31] MEDS ORDERED: FUROSEMIDE 40 MG/4 ML VIAL IV ONE ×2 (04:30→18:45)
[2023-08-31] MEDS ORDERED: ALBUTEROL SULF 2.5 MG/0.5ML(0.5%) NEB SOLN HHN ONE ×2 (04:30)
[2023-08-31] MEDS ORDERED: ONDANSETRON HCL 4 MG/2 ML VIAL IV ONE (04:30)
[2023-08-31] MEDS ORDERED: cefTRIAXone 1GM/50ML D5W 50 ML IV ONE (04:30)
[2023-08-31] MEDS ORDERED: methylPREDNISolone SOD SUCC 40 MG/ML VL IV ONE (04:30)
[2023-08-31] MEDS ORDERED: ACETAMINOPHEN 325 MG TAB PO ONE (04:30)
[2023-08-31] MEDS ORDERED: AZITHROMYCIN 500MG/ 250ML 250 ML IV ONE (04:30)
[2023-08-31] MEDS ORDERED: IPRATROPIUM BROM 0.5 MG/2.5ML INH SOL HHN ONE ×2 (04:30)
[2023-08-31 04:47] LABS: Base Excess -2.3 mmol/L (-2.0-2.0)
[2023-08-31 04:48] LABS: INR 1.04 (0.9-1.15); Partial Thromboplastin Time 24.5 SEC (24.5-34.5); Prothrombin Time 10.9 sec (9.3-11.8)
[2023-08-31 04:52] LABS: Alanine Aminotransferase 39 U/L (7-40); Albumin 3.7 g/dL (3.2-4.8); Alkaline Phosphatase 78 U/L (46-116); Anion Gap 13 (5-15); Aspartate Aminotransferase 51 U/L (13-40); Bilirubin, Total 0.2 mg/dL (0.2-1.0); Blood Urea Nitrogen 12 mg/dL (9-23); Calcium 8.7 mg/dL (8.5-10.1); Carbon Dioxide 22 mmol/L (20-30); Chloride 102 mmol/L (98-107); Glucose 216 mg/dL (74-106); Potassium 3.5 mmol/L (3.5-5.1); Sodium 137 mmol/L (136-145); Total Protein 7.2 g/dL (5.7-8.2)
[2023-08-31 04:53] LABS: Nucleated Red Blood Cells % 0.2 %
[2023-08-31 04:54] LABS: Basophils # (auto) 0 10 ^3/uL (0-0.2); Basophils % (auto) 0.2 % (0.0-2.0); Eosinophils # (auto) 0 10 ^3/uL (0-0.8); Hematocrit 23.7 % (41.0-53.0); Lymphocytes # (auto) 0.4 10 ^3/uL (0.4-5.4); Lymphocytes % (auto) 3.4 % (10.0-50.0); Mean Corpuscular Hgb Conc. 29.4 g/dL (32.0-36.0); Monocytes # (auto) 0.3 10 ^3/uL (0-1.3); Monocytes % (auto) 2.5 % (0.0-12.0); Neutrophils # (auto) 10.4 10 ^3/uL (1.6-8.6); Neutrophils % (auto) 93.9 % (37.0-80.0); Red Blood Cells 2.79 10^6/uL (4.5-5.90); Red Cell Distribution Width 19.9 % (11.8-14.3)
[2023-08-31 05:53] LABS: Lactic Acid w/Reflex 3.8 mmol/L (0.4-2.0)
[2023-08-31 06:33] LABS: % Iron Saturation 74.3 % (20-55)
[2023-08-31 06:34] LABS: Magnesium 1.8 mg/dL (1.6-2.6)
[2023-08-31] MEDS ORDERED: MORPHINE SULFATE INJ 2 MG/ml SYRG IV PRN (09:15)
[2023-08-31] MEDS ORDERED: NITROGLYCERIN 0.4 MG SL TAB SL PRN (09:15)
[2023-08-31] MEDS ORDERED: HYDROcodone-ACET 5/325MG TAB PO PRN (09:30)
[2023-08-31] MEDS ORDERED: ACETAMINOPHEN 500 MG TAB PO PRN (09:30)
[2023-08-31 09:35] LABS: Urine WBC None Seen /hpf (0 - 3)
[2023-08-31 10:00] LABS: Urine Bacteria NONE SEEN /hpf (None Seen); Urine Blood Negative /uL (Negative); Urine Clarity Clear (Clear); Urine Color Yellow (Yellow); Urine Protein, UAD Negative (Negative); Urine Specific Gravity 1.005 (1.001-1.035); Urine Urobilinogen Normal (Negative); Urine pH 5.5 (5.0-8.0)
[2023-08-31] MEDS ORDERED: SODIUM CHLORIDE 0.9% 1,000 ML IV SCH (10:30)
[2023-08-31] MEDS: PANTOPRAZOLE 40 MG TAB PO SCH (10:54)
[2023-08-31] MEDS: IPRATROPIUM BROM 0.5 MG/2.5ML INH SOL NEB SCH ×2 (11:25→18:19)
[2023-08-31] MEDS: ALBUTEROL SULF 2.5 MG/0.5ML(0.5%) NEB SOLN NEB SCH ×2 (11:25→18:19)
[2023-08-31] MEDS ORDERED: ENOXAPARIN SOD 40 MG/0.4 ML SYRINGE SC ONE (12:15)
[2023-08-31 13:48] LABS: COVID19 ANTIGEN SOFIA FIA NEGATIVE (NEGATIVE)
[2023-08-31 13:52] LABS: Rapid Influenza A Negative (Negative); Rapid Influenza B Negative (Negative)
[2023-09-01] VITALS (51 sets, daily range): BP systolic 86–139; BP diastolic 62–91; PULSE 66–160; RESP 17–46; TEMP 97.5–98.1; O2SAT 94–100
[2023-09-01] MEDS: ALBUTEROL SULF 2.5 MG/0.5ML(0.5%) NEB SOLN NEB SCH ×5 (01:41→22:46)
[2023-09-01] MEDS: IPRATROPIUM BROM 0.5 MG/2.5ML INH SOL NEB SCH ×5 (01:42→22:46)
[2023-09-01 06:24] LABS: Basophils # (auto) 0 10 ^3/uL (0-0.2); Eosinophils # (auto) 0 10 ^3/uL (0-0.8); Red Blood Cells 3.19 10^6/uL (4.5-5.90); White Blood Cell 14.3 10^3/uL (4.4-10.8)
[2023-09-01 06:28] LABS: Basophils % (auto) 0.2 % (0.0-2.0); Hematocrit 27.2 % (41.0-53.0); Hemoglobin 8.4 g/dL (13.5-17.5); Lymphocytes # (auto) 1.7 10 ^3/uL (0.4-5.4); Mean Corpuscular Hemoglobin 26.3 pg (28.0-32.0); Mean Corpuscular Hgb Conc. 30.8 g/dL (32.0-36.0); Mean Corpuscular Volume 85.3 fL (80.0-100.0); Monocytes # (auto) 1.2 10 ^3/uL (0-1.3); Monocytes % (auto) 8.7 % (0.0-12.0); Neutrophils # (auto) 11.3 10 ^3/uL (1.6-8.6); Neutrophils % (auto) 79.1 % (37.0-80.0); Nucleated Red Blood Cells % 0.1 %; Red Cell Distribution Width 18.6 % (11.8-14.3)
[2023-09-01 06:29] LABS: Chloride 102 mmol/L (98-107); Potassium 3.1 mmol/L (3.5-5.1); Sodium 141 mmol/L (136-145)
[2023-09-01 06:30] LABS: Anion Gap 8 (5-15); Calcium 8.8 mg/dL (8.5-10.1); Carbon Dioxide 31 mmol/L (20-30)
[2023-09-01 06:35] LABS: BUN/Creatinine Ratio 14.3 (10.0-20.0); Blood Urea Nitrogen 23 mg/dL (9-23); Glucose 95 mg/dL (74-106)
[2023-09-01 08:32] LABS: LDL Cholesterol 62 mg/dL (< 100); Triglycerides 77 mg/dL (< 150)
[2023-09-01 08:33] LABS: HDL Cholesterol 52 mg/dL (40-59)
[2023-09-01 08:34] LABS: Cholesterol 127 mg/dL (< 200)
[2023-09-01] MEDS: cefTRIAXone 1GM/50ML D5W 50 ML IV SCH (09:24)
[2023-09-01] MEDS: methylPREDNISolone SOD SUCC 40 MG/ML VL IV SCH (09:25)
[2023-09-01] MEDS: PANTOPRAZOLE 40 MG TAB PO SCH (09:25)
[2023-09-01] MEDS: POTASSIUM CHL 20 Meq TABLET PO SCH ×2 (09:26→11:52)
[2023-09-01] MEDS: AZITHROMYCIN 500MG/ 250ML 250 ML IV SCH (10:00)
[2023-09-01] MEDS ORDERED: ENOXAPARIN SOD 40 MG/0.4 ML SYRINGE SC SCH (10:00)
[2023-09-01] MEDS ORDERED: dilTIAZem 25 MG/5 ML VIAL IV ONE ×3 (11:51→14:00)
[2023-09-01] MEDS ORDERED: dilTIAZem 125mg/125ml BAG KIT 100 ML IV SCH (12:15)
[2023-09-01] MEDS ORDERED: AMIODARONE BOLUS KIT 100 ML IV ONE (14:15)
[2023-09-01] MEDS ORDERED: AMIODARONE 450mg/250ml AE 250 ML IV SCH (14:30)
[2023-09-01 15:38] LABS: Chloride 101 mmol/L (98-107); Potassium 4.5 mmol/L (3.5-5.1); Sodium 137 mmol/L (136-145)
[2023-09-01 15:39] LABS: Anion Gap 6 (5-15); Carbon Dioxide 30 mmol/L (20-30)
[2023-09-01 15:40] LABS: Calcium 8.6 mg/dL (8.7-10.4)
[2023-09-01 15:44] LABS: BUN/Creatinine Ratio 15.1 (10.0-20.0); Blood Urea Nitrogen 23 mg/dL (9-23); Glucose 174 mg/dL (74-106)
[2023-09-01 15:45] LABS: Magnesium 1.5 mg/dL (1.6-2.6)
[2023-09-01] MEDS ORDERED: MAGNESIUM SULFATE 1GM/100ML 100 ML IV ONE ×2 (18:00→19:00)
[2023-09-01] MEDS ORDERED: DIGOXIN (250MCG/ML) 2 ML AMPULE IV ONE (18:00)
[2023-09-01] MEDS: AMIODARONE 450mg/250ml AE 250 ML IV SCH (21:08)
[2023-09-01] MEDS: APIXABAN 5 MG TAB PO SCH (21:34)
[2023-09-02] VITALS (50 sets, daily range): BP systolic 104–144; BP diastolic 55–88; PULSE 60–101; RESP 14–42; TEMP 97.6–98.3; O2SAT 93–100
[2023-09-02] MEDS: AMIODARONE 450mg/250ml AE 250 ML IV SCH (01:34)
[2023-09-02 05:00] LABS: Basophils # (auto) 0.1 10 ^3/uL (0-0.2); Eosinophils # (auto) 0 10 ^3/uL (0-0.8); Hemoglobin 8.3 g/dL (13.5-17.5); White Blood Cell 11.3 10^3/uL (4.4-10.8)
[2023-09-02 05:02] LABS: Basophils % (auto) 0.5 % (0.0-2.0); Eosinophils % (auto) 0.1 % (0.0-7.0); Hematocrit 28.2 % (41.0-53.0); Lymphocytes % (auto) 18.1 % (10.0-50.0); Mean Corpuscular Hemoglobin 25.5 pg (28.0-32.0); Mean Corpuscular Hgb Conc. 29.3 g/dL (32.0-36.0); Monocytes # (auto) 1.2 10 ^3/uL (0-1.3); Monocytes % (auto) 10.4 % (0.0-12.0); Neutrophils % (auto) 70.9 % (37.0-80.0); Red Blood Cells 3.25 10^6/uL (4.5-5.90); Red Cell Distribution Width 19.1 % (11.8-14.3)
[2023-09-02 05:10] LABS: Chloride 104 mmol/L (98-107); Potassium 4.6 mmol/L (3.5-5.1); Sodium 137 mmol/L (136-145)
[2023-09-02 05:11] LABS: Anion Gap 5 (5-15); Carbon Dioxide 28 mmol/L (20-30)
[2023-09-02 05:12] LABS: Calcium 8.3 mg/dL (8.5-10.1)
[2023-09-02 05:16] LABS: BUN/Creatinine Ratio 11.4 (10.0-20.0); Blood Urea Nitrogen 20 mg/dL (9-23); Glucose 99 mg/dL (74-106)
[2023-09-02] MEDS: ALBUTEROL SULF 2.5 MG/0.5ML(0.5%) NEB SOLN NEB SCH ×4 (06:00→21:49)
[2023-09-02] MEDS: IPRATROPIUM BROM 0.5 MG/2.5ML INH SOL NEB SCH ×4 (06:00→21:49)
[2023-09-02] MEDS: cefTRIAXone 1GM/50ML D5W 50 ML IV SCH (07:55)
[2023-09-02] MEDS: APIXABAN 5 MG TAB PO SCH ×2 (08:28→21:42)
[2023-09-02] MEDS: methylPREDNISolone SOD SUCC 40 MG/ML VL IV SCH (08:29)
[2023-09-02] MEDS: PANTOPRAZOLE 40 MG TAB PO SCH (08:29)
[2023-09-02] MEDS: AZITHROMYCIN 500MG/ 250ML 250 ML IV SCH (08:29)
[2023-09-02] MEDS: NITROGLYCERIN 2% OINT 1GM PKG TD SCH ×4 (09:51→12:49)
[2023-09-02] MEDS: AMIODARONE HCL 200 MG TAB PO SCH (21:41)
[2023-09-02] MEDS: MUPIROCIN 2% OINT 15gm or 22gm TOP SCH (21:42)
[2023-09-03] VITALS (17 sets, daily range): BP systolic 111–134; BP diastolic 62–107; PULSE 60–108; RESP 18–38; TEMP 97.6–98; O2SAT 96–100
[2023-09-03] MEDS: ALBUTEROL SULF 2.5 MG/0.5ML(0.5%) NEB SOLN NEB SCH ×5 (06:27→17:48)
[2023-09-03] MEDS: IPRATROPIUM BROM 0.5 MG/2.5ML INH SOL NEB SCH ×5 (06:27→17:48)
[2023-09-03] MEDS: cefTRIAXone 1GM/50ML D5W 50 ML IV SCH (09:00)
[2023-09-03] MEDS: APIXABAN 5 MG TAB PO SCH (10:00)
[2023-09-03] MEDS: MUPIROCIN 2% OINT 15gm or 22gm TOP SCH (10:00)
[2023-09-03] MEDS: AZITHROMYCIN 500MG/ 250ML 250 ML IV SCH (10:00)
[2023-09-03] MEDS: methylPREDNISolone SOD SUCC 40 MG/ML VL IV SCH (10:00)
[2023-09-03] MEDS: PANTOPRAZOLE 40 MG TAB PO SCH (10:00)
[2023-09-03] MEDS: AMIODARONE HCL 200 MG TAB PO SCH (10:00)
[2023-09-03] MEDS ORDERED: AMIO200T33 PO (10:59)
[2023-09-03] MEDS ORDERED: AMOX500T86 PO (10:59)
[2023-09-03 11:04] LABS: Basophils # (auto) 0.1 10 ^3/uL (0-0.2); Basophils % (auto) 0.8 % (0.0-2.0); Eosinophils # (auto) 0.1 10 ^3/uL (0-0.8); Eosinophils % (auto) 0.6 % (0.0-7.0); Hematocrit 28.9 % (41.0-53.0); Hemoglobin 8.8 g/dL (13.5-17.5); Lymphocytes # (auto) 2.4 10 ^3/uL (0.4-5.4); Lymphocytes % (auto) 22.2 % (10.0-50.0); Mean Corpuscular Hemoglobin 25.8 pg (28.0-32.0); Mean Corpuscular Hgb Conc. 30.4 g/dL (32.0-36.0); Mean Corpuscular Volume 84.9 fL (80.0-100.0); Monocytes # (auto) 0.8 10 ^3/uL (0-1.3); Monocytes % (auto) 7.4 % (0.0-12.0); Neutrophils # (auto) 7.5 10 ^3/uL (1.6-8.6); Nucleated Red Blood Cells % 0.1 %; Red Blood Cells 3.41 10^6/uL (4.5-5.90); Red Cell Distribution Width 18.2 % (11.8-14.3); White Blood Cell 10.8 10^3/uL (4.4-10.8)
[2023-09-03 11:20] LABS: Anion Gap 7 (5-15); BUN/Creatinine Ratio 11.9 (10.0-20.0); Blood Urea Nitrogen 19 mg/dL (9-23); Calcium 8.6 mg/dL (8.5-10.1); Carbon Dioxide 23 mmol/L (20-30); Chloride 106 mmol/L (98-107); Glucose 100 mg/dL (74-106); Potassium 4.5 mmol/L (3.5-5.1); Sodium 136 mmol/L (136-145)
[2023-09-03] MEDS ORDERED: DOXY-448 PO (12:24)
[2023-09-03] MEDS ORDERED: APIX2.5T PO ×2 (15:18)
[2023-09-03] MEDS ORDERED: APIX5TAB PO (15:19)
== END 2023-09-03 19:08 | disposition hospice, home (50) | DRG 177 ==
LOC: EDBD 03:43 → ER 03:43 → OVERFLOW 09:13 → TELE 10:30 → TELE-WESTW 20:40 → DOU IN ICU 09-01 12:30
PROVIDERS: ADMIT Internal Medicine Pulmonary Disease; ATTEND Internal Medicine Pulmonary Disease
PROC: 30233N1 Transfusion of Nonautologous Red Blood Cells into Peripheral Vein, Percutaneous Approach (ICD-10-PCS; principal; 2023-08-31)
DX: J15.69 Pneumonia due to other Gram-negative bacteria (principal); J96.21 Acute and chronic respiratory failure with hypoxia; J44.0 Chronic obstructive pulmonary disease with (acute) lower respiratory infection; J44.1 Chronic obstructive pulmonary disease with (acute) exacerbation; E87.20 Acidosis, unspecified; N17.9 Acute kidney failure, unspecified; J18.9 Pneumonia, unspecified organism; D64.9 Anemia, unspecified; N18.30 Chronic kidney disease, stage 3 unspecified; Z20.822 Contact with and (suspected) exposure to COVID-19; B95.62 Methicillin resistant Staphylococcus aureus infection as the cause of diseases classified elsewhere; I48.91 Unspecified atrial fibrillation; I51.7 Cardiomegaly; J15.9 Unspecified bacterial pneumonia
CPT/HCPCS: 36415; 36600; 71045; 80048; 80053; 80061; 81001; 82607; 82728; 82805; 83036; 83540; 83550; 83605; 83615; 83735; 83880; 84443; 84484; 85025; 85045; 85610; 85730; 86850; 86900; 86901; 86920; 87040; 87070; 87077; 87081; 87086; 87186; 87205; 87426; 87804; 93005; 94640; 96365; 96368; 96375; G0378; J0696

== ENCOUNTER 2023-10-18 05:54 | Inpatient (IN) | payer MEDICARE, MEDICAID ==
[~2023-10-18] VITALS: Ht 170.2 cm; Wt 69.7 kg
[~2023-10-18 05:54] MED LIST changes: +AMIO200T33 PO; +AMOX500T86 PO; +APIX5TAB PO; +DOXY-448 PO; -LEVO500T91 PO
[2023-10-18 06:21] LABS: Eosinophils # (auto) 0.1 10 ^3/uL (0-0.8); Monocytes # (auto) 1.3 10 ^3/uL (0-1.3); Monocytes % (auto) 11.4 % (0.0-12.0); Red Blood Cells 3.66 10^6/uL (4.5-5.90)
[2023-10-18 06:23] LABS: Basophils # (auto) 0.1 10 ^3/uL (0-0.2); Basophils % (auto) 0.5 % (0.0-2.0); Eosinophils % (auto) 1.3 % (0.0-7.0); Hematocrit 29.3 % (41.0-53.0); Hemoglobin 8.9 g/dL (13.5-17.5); Lymphocytes % (auto) 17.7 % (10.0-50.0); Mean Corpuscular Hemoglobin 24.3 pg (28.0-32.0); Mean Corpuscular Hgb Conc. 30.3 g/dL (32.0-36.0); Mean Corpuscular Volume 80.2 fL (80.0-100.0); Neutrophils # (auto) 7.8 10 ^3/uL (1.6-8.6); Neutrophils % (auto) 69.1 % (37.0-80.0); Nucleated Red Blood Cells % 0.1 %; White Blood Cell 11.3 10^3/uL (4.4-10.8)
[2023-10-18 06:32] LABS: Red Cell Distribution Width 21.9 % (11.8-14.3)
[2023-10-18 06:41] LABS: Alanine Aminotransferase 50 U/L (7-40); Albumin 4.2 g/dL (3.2-4.8); Alkaline Phosphatase 100 U/L (46-116); Anion Gap 8 (5-15); Aspartate Aminotransferase 110 U/L (13-40); BUN/Creatinine Ratio 9.9 (10.0-20.0); Blood Urea Nitrogen 15 mg/dL (9-23); Calcium 8.1 mg/dL (8.7-10.4); Carbon Dioxide 27 mmol/L (20-30); Chloride 102 mmol/L (98-107); Glucose 105 mg/dL (74-106); Magnesium 1.8 mg/dL (1.6-2.6); Potassium 3.2 mmol/L (3.5-5.1); Sodium 137 mmol/L (136-145)
[2023-10-18 06:42] LABS: Total Protein 7.6 g/dL (5.7-8.2)
[2023-10-18 06:47] LABS: INR 1.02 (0.9-1.15); Partial Thromboplastin Time 26.1 SEC (24.5-34.5); Prothrombin Time 10.7 sec (9.3-11.8)
[2023-10-18] MEDS ORDERED: ALBUTEROL SULF 2.5 MG/0.5ML(0.5%) NEB SOLN NEB ONE (07:45)
[2023-10-18] MEDS ORDERED: IPRATROPIUM BROM 0.5 MG/2.5ML INH SOL NEB ONE (07:45)
[2023-10-18] MEDS ORDERED: ALBUTEROL MEDNEB 2.5 mg/3ml NEB ONE (07:54)
[2023-10-18 07:58] LABS: Anisocytosis Slight
[2023-10-18 07:59] LABS: Hypochromia Slight; Platelet Estimate Adequate
[2023-10-18 08:34] LABS: Bilirubin, Total 0.2 mg/dL (0.2-1.0)
[2023-10-18] MEDS ORDERED: HYDROcodone-ACET 5/325MG TAB PO PRN (11:30)
[2023-10-18] MEDS ORDERED: POTASSIUM CHL 20 Meq TABLET PO ONE (11:30)
[2023-10-18] MEDS ORDERED: IBUPROFEN 600 MG TAB PO PRN (11:30)
[2023-10-18] MEDS ORDERED: ONDANSETRON HCL 4 MG/2 ML VIAL IV PRN (11:30)
[2023-10-18] MEDS ORDERED: IPRATROPIUM BROM 0.5 MG/2.5ML INH SOL NEB PRN (11:30)
[2023-10-18] MEDS ORDERED: DOCUSATE SOD 100 MG CAP PO PRN (11:30)
[2023-10-18] MEDS ORDERED: ACETAMINOPHEN 325 MG TAB PO PRN (11:30)
[2023-10-18 13:14] LABS: Urine Bacteria NONE SEEN /hpf (None Seen); Urine Blood Negative /uL (Negative); Urine Clarity Clear (Clear); Urine Color Yellow (Yellow); Urine Protein, UAD 1+ (Negative); Urine Specific Gravity 1.014 (1.001-1.035); Urine Urobilinogen Normal (Negative); Urine WBC 1 /hpf (0 - 3)
[2023-10-18 15:20] VITALS: BP 161/93; PULSE 77; RESP 16; TEMP 98.9; O2SAT 98
[2023-10-18 15:25] VITALS: O2SAT 98
[2023-10-18] MEDS ORDERED: MORPHINE SULFATE INJ 2 MG/ml SYRG IV PRN (16:45)
[2023-10-18] MEDS ORDERED: methylPREDNISolone SOD SUCC 125 MG/2 ML VL IV ONE (16:45)
[2023-10-18] MEDS ORDERED: NITROGLYCERIN 0.4 MG SL TAB SL PRN (16:45)
[2023-10-18 18:05] VITALS: O2SAT 98
[2023-10-18] MEDS ORDERED: ATORVASTATIN 20 MG TAB PO SCH (22:00)
[2023-10-18] MEDS: SODIUM CHLORIDE 0.9% 1,000 ML IV SCH (22:15)
[2023-10-18] MEDS: methylPREDNISolone SOD SUCC 40 MG/ML VL IV SCH (22:34)
[2023-10-18] MEDS: APIXABAN 5 MG TAB PO SCH (22:38)
[2023-10-18 22:44] VITALS: PULSE 69; RESP 18; O2SAT 98
[2023-10-19] VITALS (7 sets, daily range): BP systolic 135; BP diastolic 68; PULSE 77–89; RESP 18–79; TEMP 98; O2SAT 98–100
[2023-10-19 07:15] LABS: Basophils # (auto) 0 10 ^3/uL (0-0.2); Basophils % (auto) 0.2 % (0.0-2.0); Eosinophils # (auto) 0 10 ^3/uL (0-0.8); Lymphocytes # (auto) 0.4 10 ^3/uL (0.4-5.4); Monocytes # (auto) 0.1 10 ^3/uL (0-1.3)
[2023-10-19 07:16] LABS: Hematocrit 27.9 % (41.0-53.0); Hemoglobin 8.5 g/dL (13.5-17.5); Lymphocytes % (auto) 4.8 % (10.0-50.0); Mean Corpuscular Hemoglobin 24.8 pg (28.0-32.0); Mean Corpuscular Hgb Conc. 30.4 g/dL (32.0-36.0); Mean Corpuscular Volume 81.6 fL (80.0-100.0); Neutrophils # (auto) 7.5 10 ^3/uL (1.6-8.6); Red Blood Cells 3.42 10^6/uL (4.5-5.90); Red Cell Distribution Width 22.6 % (11.8-14.3)
[2023-10-19 07:26] LABS: Alanine Aminotransferase 43 U/L (7-40); Albumin 4.3 g/dL (3.2-4.8); Alkaline Phosphatase 101 U/L (46-116); Anion Gap 8 (5-15); Aspartate Aminotransferase 71 U/L (13-40); BUN/Creatinine Ratio 12.4 (10.0-20.0); Blood Urea Nitrogen 16 mg/dL (9-23); Calcium 9.1 mg/dL (8.7-10.4); Carbon Dioxide 24 mmol/L (20-30); Chloride 103 mmol/L (98-107); Glucose 130 mg/dL (74-106); Potassium 4.2 mmol/L (3.5-5.1); Sodium 135 mmol/L (136-145)
[2023-10-19 07:27] LABS: Bilirubin, Total 0.6 mg/dL (0.2-1.0); Total Protein 8.1 g/dL (5.7-8.2)
[2023-10-19] MEDS: methylPREDNISolone SOD SUCC 40 MG/ML VL IV SCH ×3 (07:43→21:48)
[2023-10-19] MEDS: SODIUM CHLORIDE 0.9% 1,000 ML IV SCH (07:43)
[2023-10-19] MEDS: APIXABAN 5 MG TAB PO SCH ×2 (10:21→21:49)
[2023-10-19] MEDS ORDERED: cefTRIAXone 1GM/50ML D5W 50 ML IV ONE (10:45)
[2023-10-19] MEDS ORDERED: PANTOPRAZOLE 40 MG TAB PO ONE (10:45)
[2023-10-19] MEDS ORDERED: AZITHROMYCIN 250 MG TAB PO ONE (10:45)
[2023-10-19] MEDS ORDERED: LORazepam 0.5 MG TAB PO PRN (10:45)
[2023-10-19] MEDS: IPRATROPIUM BROM 0.5 MG/2.5ML INH SOL NEB SCH ×2 (12:00→18:48)
[2023-10-19] MEDS: ALBUTEROL MEDNEB 2.5 mg/3ml NEB NEB SCH ×2 (12:00→18:00)
[2023-10-19] MEDS: ATORVASTATIN 20 MG TAB PO SCH (21:48)
[2023-10-19] MEDS: AMIODARONE HCL 200 MG TAB PO SCH (21:48)
[2023-10-19] MEDS: DOXYCYCLINE 100 MG TAB/CAP PO SCH (21:49)
[2023-10-20] VITALS (15 sets, daily range): BP systolic 113–131; BP diastolic 50–69; PULSE 64–95; RESP 18–22; TEMP 97.4–98.7; O2SAT 96–100
[2023-10-20] MEDS: IPRATROPIUM BROM 0.5 MG/2.5ML INH SOL NEB SCH ×4 (00:22→19:41)
[2023-10-20] MEDS: ALBUTEROL MEDNEB 2.5 mg/3ml NEB NEB SCH ×4 (00:22→19:42)
[2023-10-20] MEDS: methylPREDNISolone SOD SUCC 40 MG/ML VL IV SCH ×2 (05:17→21:21)
[2023-10-20 06:50] LABS: Alanine Aminotransferase 33 U/L (7-40); Albumin 3.7 g/dL (3.2-4.8); Alkaline Phosphatase 66 U/L (46-116); Anion Gap 9 (5-15); Aspartate Aminotransferase 37 U/L (13-40); BUN/Creatinine Ratio 18.1 (10.0-20.0); Calcium 9.4 mg/dL (8.5-10.1); Carbon Dioxide 24 mmol/L (20-30); Chloride 105 mmol/L (98-107); Glucose 183 mg/dL (74-106); Potassium 3.8 mmol/L (3.5-5.1); Sodium 138 mmol/L (136-145)
[2023-10-20 06:51] LABS: Bilirubin, Total 0.3 mg/dL (0.2-1.0); Total Protein 6.9 g/dL (5.7-8.2)
[2023-10-20 06:56] LABS: Blood Urea Nitrogen 32 mg/dL (9-23)
[2023-10-20 07:05] LABS: Basophils # (auto) 0 10 ^3/uL (0-0.2); Eosinophils # (auto) 0 10 ^3/uL (0-0.8); Hemoglobin 7.1 g/dL (13.5-17.5); Lymphocytes # (auto) 0.6 10 ^3/uL (0.4-5.4); Monocytes # (auto) 0.6 10 ^3/uL (0-1.3); Nucleated Red Blood Cells % 0.1 %; White Blood Cell 11.1 10^3/uL (4.4-10.8)
[2023-10-20 07:09] LABS: Basophils % (auto) 0.1 % (0.0-2.0); Hematocrit 23.4 % (41.0-53.0); Lymphocytes % (auto) 5.1 % (10.0-50.0); Mean Corpuscular Hemoglobin 24.5 pg (28.0-32.0); Mean Corpuscular Hgb Conc. 30.2 g/dL (32.0-36.0); Mean Corpuscular Volume 81.2 fL (80.0-100.0); Monocytes % (auto) 5.1 % (0.0-12.0); Neutrophils % (auto) 89.7 % (37.0-80.0); Red Blood Cells 2.88 10^6/uL (4.5-5.90)
[2023-10-20 07:17] LABS: Red Cell Distribution Width 23.9 % (11.8-14.3)
[2023-10-20] MEDS ORDERED: AZITHROMYCIN 250 MG TAB PO SCH (10:00)
[2023-10-20] MEDS: cefTRIAXone 1GM/50ML D5W 50 ML IV SCH (10:13)
[2023-10-20] MEDS: PANTOPRAZOLE 40 MG TAB PO SCH (10:16)
[2023-10-20] MEDS: OLANZapine 5 MG TAB PO SCH (10:16)
[2023-10-20] MEDS: DOXYCYCLINE 100 MG TAB/CAP PO SCH ×2 (10:16→21:20)
[2023-10-20] MEDS: AMIODARONE HCL 200 MG TAB PO SCH ×2 (10:16→21:21)
[2023-10-20] MEDS: ACETYLCYSTEINE 20%(200MG/ML) SOL 4ML NEB SCH ×2 (12:07→19:42)
[2023-10-20] MEDS: ATORVASTATIN 20 MG TAB PO SCH (21:21)
[2023-10-21] VITALS (21 sets, daily range): BP systolic 115–137; BP diastolic 56–76; PULSE 71–98; RESP 16–20; TEMP 97–98.8; O2SAT 91–100
[2023-10-21] MEDS: ACETYLCYSTEINE 20%(200MG/ML) SOL 4ML NEB SCH ×4 (00:34→19:54)
[2023-10-21] MEDS: ALBUTEROL MEDNEB 2.5 mg/3ml NEB NEB PRN (00:34)
[2023-10-21 06:20] LABS: Basophils # (auto) 0 10 ^3/uL (0-0.2); Basophils % (auto) 0.1 % (0.0-2.0); Chloride 106 mmol/L (98-107); Eosinophils # (auto) 0 10 ^3/uL (0-0.8); Potassium 4.1 mmol/L (3.5-5.1); Sodium 139 mmol/L (136-145)
[2023-10-21 06:21] LABS: Anion Gap 9 (5-15); Calcium 8.9 mg/dL (8.5-10.1); Carbon Dioxide 24 mmol/L (20-30)
[2023-10-21 06:23] LABS: Hematocrit 22.3 % (41.0-53.0); Lymphocytes # (auto) 0.5 10 ^3/uL (0.4-5.4); Lymphocytes % (auto) 2.9 % (10.0-50.0); Mean Corpuscular Hemoglobin 24.5 pg (28.0-32.0); Mean Corpuscular Volume 81.7 fL (80.0-100.0); Monocytes # (auto) 0.6 10 ^3/uL (0-1.3); Monocytes % (auto) 3.5 % (0.0-12.0); Neutrophils # (auto) 15.4 10 ^3/uL (1.6-8.6); Neutrophils % (auto) 93.5 % (37.0-80.0); Nucleated Red Blood Cells % 0.1 %; Red Blood Cells 2.73 10^6/uL (4.5-5.90); White Blood Cell 16.5 10^3/uL (4.4-10.8)
[2023-10-21 06:26] LABS: BUN/Creatinine Ratio 18.8 (10.0-20.0); Blood Urea Nitrogen 35 mg/dL (9-23); Glucose 160 mg/dL (74-106)
[2023-10-21 07:05] LABS: Red Cell Distribution Width 23.8 % (11.8-14.3)
[2023-10-21 07:09] LABS: Hemoglobin 6.7 g/dL (13.5-17.5)
[2023-10-21] MEDS: ALBUTEROL MEDNEB 2.5 mg/3ml NEB NEB SCH ×3 (08:13→19:53)
[2023-10-21] MEDS: IPRATROPIUM BROM 0.5 MG/2.5ML INH SOL NEB SCH ×3 (08:13→19:53)
[2023-10-21] MEDS: cefTRIAXone 1GM/50ML D5W 50 ML IV SCH (09:07)
[2023-10-21] MEDS: OLANZapine 5 MG TAB PO SCH (09:08)
[2023-10-21] MEDS: PANTOPRAZOLE 40 MG TAB PO SCH (09:08)
[2023-10-21] MEDS: methylPREDNISolone SOD SUCC 40 MG/ML VL IV SCH (09:08)
[2023-10-21] MEDS: DOXYCYCLINE 100 MG TAB/CAP PO SCH ×2 (09:08→22:52)
[2023-10-21] MEDS: AMIODARONE HCL 200 MG TAB PO SCH ×2 (09:08→22:52)
[2023-10-21] MEDS: ATORVASTATIN 20 MG TAB PO SCH (22:52)
[2023-10-22] VITALS (15 sets, daily range): BP systolic 112–135; BP diastolic 55–74; PULSE 69–118; RESP 17–21; TEMP 97.2–98.7; O2SAT 95–100
[2023-10-22] MEDS: ALBUTEROL MEDNEB 2.5 mg/3ml NEB NEB PRN (00:01)
[2023-10-22] MEDS: ACETYLCYSTEINE 20%(200MG/ML) SOL 4ML NEB SCH ×4 (00:01→18:05)
[2023-10-22 05:45] LABS: Basophils # (auto) 0 10 ^3/uL (0-0.2); Basophils % (auto) 0.1 % (0.0-2.0); Eosinophils # (auto) 0 10 ^3/uL (0-0.8); Hemoglobin 7.9 g/dL (13.5-17.5); Mean Corpuscular Hemoglobin 25.7 pg (28.0-32.0)
[2023-10-22 05:48] LABS: Hematocrit 25.7 % (41.0-53.0); Lymphocytes # (auto) 1.3 10 ^3/uL (0.4-5.4); Mean Corpuscular Hgb Conc. 30.9 g/dL (32.0-36.0); Mean Corpuscular Volume 83.4 fL (80.0-100.0); Monocytes # (auto) 1.1 10 ^3/uL (0-1.3); Monocytes % (auto) 6.5 % (0.0-12.0); Neutrophils # (auto) 13.8 10 ^3/uL (1.6-8.6); Neutrophils % (auto) 85.4 % (37.0-80.0); Nucleated Red Blood Cells % 0.1 %; Red Blood Cells 3.08 10^6/uL (4.5-5.90); White Blood Cell 16.2 10^3/uL (4.4-10.8)
[2023-10-22 05:52] LABS: Red Cell Distribution Width 22.1 % (11.8-14.3)
[2023-10-22 05:53] LABS: Chloride 109 mmol/L (98-107); Potassium 3.6 mmol/L (3.5-5.1); Sodium 141 mmol/L (136-145)
[2023-10-22 05:54] LABS: Anion Gap 8 (5-15); Calcium 8.8 mg/dL (8.5-10.1); Carbon Dioxide 24 mmol/L (20-30)
[2023-10-22 05:59] LABS: BUN/Creatinine Ratio 18.5 (10.0-20.0); Blood Urea Nitrogen 30 mg/dL (9-23); Glucose 119 mg/dL (74-106)
[2023-10-22] MEDS: ALBUTEROL MEDNEB 2.5 mg/3ml NEB NEB SCH ×3 (06:49→18:05)
[2023-10-22] MEDS: IPRATROPIUM BROM 0.5 MG/2.5ML INH SOL NEB SCH ×3 (06:49→18:05)
[2023-10-22] MEDS: PANTOPRAZOLE 40 MG TAB PO SCH (09:32)
[2023-10-22] MEDS: OLANZapine 5 MG TAB PO SCH (09:32)
[2023-10-22] MEDS: DOXYCYCLINE 100 MG TAB/CAP PO SCH ×2 (09:33→21:37)
[2023-10-22] MEDS: predniSONE 20 MG TAB PO SCH (09:33)
[2023-10-22] MEDS: AMIODARONE HCL 200 MG TAB PO SCH ×2 (09:33→21:37)
[2023-10-22] MEDS ORDERED: FUROSEMIDE 20 MG/2 ML VIAL IV ONE (10:15)
[2023-10-22] MEDS ORDERED: GOLYTELY 4L KIT PO ONE (12:45)
[2023-10-22] MEDS ORDERED: POLYETHYLENE GLYCOL 17 GM PWDR PO ONE ×2 (12:45→23:00)
[2023-10-22] MEDS ORDERED: FLEET MINERAL OIL ENEMA 133 ML PR ONE (12:45)
[2023-10-22] MEDS: ATORVASTATIN 20 MG TAB PO SCH (21:37)
[2023-10-22] MEDS: POLYETHYLENE GLYCOL 17 GM PWDR PO SCH (23:00)
[2023-10-23] VITALS (17 sets, daily range): BP systolic 104–140; BP diastolic 57–81; PULSE 64–102; RESP 18–32; TEMP 96.4–98.7; O2SAT 93–100
[2023-10-23] MEDS: ALBUTEROL MEDNEB 2.5 mg/3ml NEB NEB PRN (00:21)
[2023-10-23] MEDS: ACETYLCYSTEINE 20%(200MG/ML) SOL 4ML NEB SCH ×4 (00:21→19:21)
[2023-10-23] MEDS ORDERED: POLYETHYLENE GLYCOL 17 GM PWDR PO ONE (06:00)
[2023-10-23] MEDS: IPRATROPIUM BROM 0.5 MG/2.5ML INH SOL NEB SCH ×3 (07:36→19:21)
[2023-10-23] MEDS: ALBUTEROL MEDNEB 2.5 mg/3ml NEB NEB SCH ×3 (07:36→19:21)
[2023-10-23 07:50] LABS: Basophils # (auto) 0 10 ^3/uL (0-0.2); Eosinophils # (auto) 0 10 ^3/uL (0-0.8); Eosinophils % (auto) 0.2 % (0.0-7.0); Hemoglobin 8.7 g/dL (13.5-17.5)
[2023-10-23 07:52] LABS: Basophils % (auto) 0.1 % (0.0-2.0); Hematocrit 28.7 % (41.0-53.0); Lymphocytes # (auto) 2.1 10 ^3/uL (0.4-5.4); Lymphocytes % (auto) 11.6 % (10.0-50.0); Mean Corpuscular Hemoglobin 25.1 pg (28.0-32.0); Mean Corpuscular Hgb Conc. 30.5 g/dL (32.0-36.0); Mean Corpuscular Volume 82.2 fL (80.0-100.0); Monocytes # (auto) 1.3 10 ^3/uL (0-1.3); Monocytes % (auto) 7.5 % (0.0-12.0); Neutrophils # (auto) 14.4 10 ^3/uL (1.6-8.6); Neutrophils % (auto) 80.6 % (37.0-80.0); Red Blood Cells 3.49 10^6/uL (4.5-5.90); Red Cell Distribution Width 22.5 % (11.8-14.3); White Blood Cell 17.8 10^3/uL (4.4-10.8)
[2023-10-23 08:02] LABS: Anion Gap 8 (5-15); Carbon Dioxide 28 mmol/L (20-30); Chloride 103 mmol/L (98-107); Potassium 3.4 mmol/L (3.5-5.1); Sodium 139 mmol/L (136-145)
[2023-10-23 08:03] LABS: Calcium 9.1 mg/dL (8.5-10.1)
[2023-10-23 08:08] LABS: BUN/Creatinine Ratio 15.8 (10.0-20.0); Blood Urea Nitrogen 21 mg/dL (9-23); Glucose 80 mg/dL (74-106)
[2023-10-23] MEDS: PANTOPRAZOLE 40 MG TAB PO SCH (09:09)
[2023-10-23] MEDS: DOXYCYCLINE 100 MG TAB/CAP PO SCH ×2 (09:09→21:45)
[2023-10-23] MEDS: predniSONE 20 MG TAB PO SCH (09:09)
[2023-10-23] MEDS: AMIODARONE HCL 200 MG TAB PO SCH ×2 (09:09→21:45)
[2023-10-23] MEDS: POLYETHYLENE GLYCOL 17 GM PWDR PO SCH (09:10)
[2023-10-23] MEDS: OLANZapine 5 MG TAB PO SCH (09:10)
[2023-10-23] MEDS ORDERED: MIDAZOLAM HCL 5 MG/ML-1ML VIAL ONE (10:20)
[2023-10-23] MEDS ORDERED: SODIUM CHLORIDE LOCK 10 ML ONE (10:20)
[2023-10-23] MEDS ORDERED: diphenhdrAMINE HCL 50 MG/1 ML VL ONE (10:20)
[2023-10-23] MEDS ORDERED: fentaNYL CITRATE 100 MCG/2 ML VL ONE (10:21)
[2023-10-23] MEDS ORDERED: KETAMINE 50mg/ML 10ml Vial (500mg/10ml) IV ONE (15:29)
[2023-10-23] MEDS ORDERED: GLYCOPYRROLATE 0.2 MG/ML 1ML VIAL ONE (16:04)
[2023-10-23] MEDS ORDERED: MIDAZOLAM HCL 2MG/2ML 2ml VIAL (1mg/ml) ONE (16:04)
[2023-10-23] MEDS ORDERED: PROPOFOL 10 MG/ML 20 ML IV ONE (16:05)
[2023-10-23] MEDS ORDERED: ONDANSETRON HCL 4 MG/2 ML VIAL ONE (16:05)
[2023-10-23] MEDS ORDERED: MEPERIDINE HCL (25 MG/ML) 1ML VIAL ONE (16:34)
[2023-10-23] MEDS: ATORVASTATIN 20 MG TAB PO SCH (21:45)
[2023-10-24] VITALS (16 sets, daily range): BP systolic 108–128; BP diastolic 50–62; PULSE 73–89; RESP 16–24; TEMP 97.7–98.1; O2SAT 91–99
[2023-10-24] MEDS: ALBUTEROL MEDNEB 2.5 mg/3ml NEB NEB SCH ×3 (03:40→18:03)
[2023-10-24] MEDS: IPRATROPIUM BROM 0.5 MG/2.5ML INH SOL NEB SCH ×3 (07:46→18:03)
[2023-10-24] MEDS: ACETYLCYSTEINE 20%(200MG/ML) SOL 4ML NEB SCH ×3 (07:47→18:04)
[2023-10-24] MEDS: DOXYCYCLINE 100 MG TAB/CAP PO SCH (10:43)
[2023-10-24] MEDS: OLANZapine 5 MG TAB PO SCH (10:43)
[2023-10-24] MEDS: AMIODARONE HCL 200 MG TAB PO SCH ×2 (10:43→22:06)
[2023-10-24] MEDS: PANTOPRAZOLE 40 MG TAB PO SCH (10:43)
[2023-10-24] MEDS: POLYETHYLENE GLYCOL 17 GM PWDR PO SCH (10:44)
[2023-10-24] MEDS: predniSONE 20 MG TAB PO SCH (10:44)
[2023-10-24] MEDS ORDERED: levoFLOXacin 500MG 100 ML IV ONE (14:45)
[2023-10-24] MEDS: ATORVASTATIN 20 MG TAB PO SCH (22:06)
[2023-10-25] VITALS (15 sets, daily range): BP systolic 104–134; BP diastolic 55–69; PULSE 66–114; RESP 15–19; TEMP 97.4–98.2; O2SAT 94–100
[2023-10-25] MEDS: IPRATROPIUM BROM 0.5 MG/2.5ML INH SOL NEB SCH ×3 (06:02→18:36)
[2023-10-25] MEDS: ALBUTEROL MEDNEB 2.5 mg/3ml NEB NEB SCH ×3 (06:03→18:35)
[2023-10-25] MEDS: ACETYLCYSTEINE 20%(200MG/ML) SOL 4ML NEB SCH ×3 (06:04→18:36)
[2023-10-25] MEDS: predniSONE 20 MG TAB PO SCH (09:57)
[2023-10-25] MEDS: AMIODARONE HCL 200 MG TAB PO SCH (09:58)
[2023-10-25] MEDS: PANTOPRAZOLE 40 MG TAB PO SCH (09:59)
[2023-10-25] MEDS: OLANZapine 5 MG TAB PO SCH (09:59)
[2023-10-25] MEDS ORDERED: levoFLOXacin 500MG 100 ML IV SCH (10:00)
[2023-10-25] MEDS ORDERED: cefTAZidime 1 GM in SODIUM CHL 0.9% 50 ML IV ONE (10:30)
[2023-10-25] MEDS ORDERED: LIDOCAINE 1% (LOCAL ANESTH.) PF 5ml SDV ID ONE (13:45)
[2023-10-25] MEDS: cefTAZidime 1 GM in SODIUM CHL 0.9% 50 ML IV SCH ×2 (15:20→22:20)
[2023-10-25] MEDS ORDERED: SODIUM CHLOR 0.9% PF (SALINE LOCK) 10ML VIAL/SYR IV SCH (22:00)
[2023-10-25] MEDS: ATORVASTATIN 20 MG TAB PO SCH (22:20)
[2023-10-25] MEDS: ALBUTEROL MEDNEB 2.5 mg/3ml NEB NEB PRN (23:40)
[2023-10-26] VITALS (9 sets, daily range): BP systolic 118–125; BP diastolic 55–74; PULSE 65–93; RESP 14–20; TEMP 36.9; O2SAT 68–100
[2023-10-26] MEDS: cefTAZidime 1 GM in SODIUM CHL 0.9% 50 ML IV SCH (05:40)
[2023-10-26] MEDS: ALBUTEROL MEDNEB 2.5 mg/3ml NEB NEB SCH ×2 (06:31→11:37)
[2023-10-26] MEDS: ACETYLCYSTEINE 20%(200MG/ML) SOL 4ML NEB SCH ×2 (06:31→11:37)
[2023-10-26] MEDS: IPRATROPIUM BROM 0.5 MG/2.5ML INH SOL NEB SCH ×2 (06:32→11:37)
[2023-10-26 06:57] LABS: Basophils # (auto) 0 10 ^3/uL (0-0.2); Eosinophils # (auto) 0 10 ^3/uL (0-0.8); Eosinophils % (auto) 0.1 % (0.0-7.0); Monocytes # (auto) 1.5 10 ^3/uL (0-1.3)
[2023-10-26 06:58] LABS: Hematocrit 26.4 % (41.0-53.0); Lymphocytes # (auto) 1.9 10 ^3/uL (0.4-5.4); Lymphocytes % (auto) 15.4 % (10.0-50.0); Mean Corpuscular Hemoglobin 25.2 pg (28.0-32.0); Mean Corpuscular Hgb Conc. 30.4 g/dL (32.0-36.0); Mean Corpuscular Volume 82.9 fL (80.0-100.0); Monocytes % (auto) 12.2 % (0.0-12.0); Neutrophils % (auto) 72.3 % (37.0-80.0); Nucleated Red Blood Cells % 0.1 %; Red Blood Cells 3.18 10^6/uL (4.5-5.90); White Blood Cell 12.5 10^3/uL (4.4-10.8)
[2023-10-26 07:16] LABS: Chloride 103 mmol/L (98-107); Potassium 4.1 mmol/L (3.5-5.1); Sodium 137 mmol/L (136-145)
[2023-10-26 07:17] LABS: Anion Gap 6 (5-15); Carbon Dioxide 28 mmol/L (20-30)
[2023-10-26 07:22] LABS: BUN/Creatinine Ratio 16.9 (10.0-20.0); Blood Urea Nitrogen 25 mg/dL (9-23); Glucose 104 mg/dL (74-106)
[2023-10-26] MEDS: AMIODARONE HCL 200 MG TAB PO SCH (09:18)
[2023-10-26] MEDS: OLANZapine 5 MG TAB PO SCH (09:18)
[2023-10-26] MEDS: predniSONE 20 MG TAB PO SCH (09:18)
[2023-10-26] MEDS: PANTOPRAZOLE 40 MG TAB PO SCH (09:18)
[2023-10-26] MEDS ORDERED: CIP500T PO (11:33)
== END 2023-10-26 15:30 | disposition home or self-care (01) | DRG 177 ==
LOC: ER 05:54 → EDBD 05:54 → TELE 16:38 → TELE-WESTW 10-19 17:55
PROVIDERS: ADMIT Nurse Practitioner Family; ATTEND Internal Medicine
PROC: 0DBL8ZZ Excision of Transverse Colon, Via Natural or Artificial Opening Endoscopic (ICD-10-PCS; 2023-10-23)
PROC: 0DBN8ZZ Excision of Sigmoid Colon, Via Natural or Artificial Opening Endoscopic (ICD-10-PCS; principal; 2023-10-23 16:06)
PROC: 30233N1 Transfusion of Nonautologous Red Blood Cells into Peripheral Vein, Percutaneous Approach (ICD-10-PCS; 2023-10-24)
DX: J15.1 Pneumonia due to Pseudomonas (principal); J96.20 Acute and chronic respiratory failure, unspecified whether with hypoxia or hypercapnia; N17.0 Acute kidney failure with tubular necrosis; J44.1 Chronic obstructive pulmonary disease with (acute) exacerbation; I24.9 Acute ischemic heart disease, unspecified; J44.0 Chronic obstructive pulmonary disease with (acute) lower respiratory infection; K92.2 Gastrointestinal hemorrhage, unspecified; E87.6 Hypokalemia; D64.9 Anemia, unspecified; I12.9 Hypertensive chronic kidney disease with stage 1 through stage 4 chronic kidney disease, or unspecified chronic kidney disease; E78.5 Hyperlipidemia, unspecified; F17.210 Nicotine dependence, cigarettes, uncomplicated; F32.A Depression, unspecified; F41.9 Anxiety disorder, unspecified; H91.90 Unspecified hearing loss, unspecified ear; I48.91 Unspecified atrial fibrillation; I50.9 Heart failure, unspecified; N18.30 Chronic kidney disease, stage 3 unspecified; K21.9 Gastro-esophageal reflux disease without esophagitis; T38.0X5A Adverse effect of glucocorticoids and synthetic analogues, initial encounter; Z86.73 Personal history of transient ischemic attack (TIA), and cerebral infarction without residual deficits; Y92.89 Other specified places as the place of occurrence of the external cause; K63.5 Polyp of colon
CPT/HCPCS: 36415; 71045; 71250; 76775; 80048; 80053; 81001; 82270; 83735; 83880; 84484; 85025; 85610; 85730; 86850; 86900; 86901; 86920; 87070; 87077; 87186; 87205; 93005; 94640; 96361; 96374; 97110; 97116; 97163; 97530; G0378; J0696; J2250; J2405; J2704